=== PATIENT | male | born 1995 | race Hispanic/Latino ===

== ENCOUNTER 2016-08-18 23:28 | Observation (INO) | payer MEDICAID, OTHER ==
[2016-08-18 23:35] VITALS: RESP 16; O2SAT 99
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
[2016-08-19 00:38] LABS: BASO # 0.1 K/uL (0.0-0.2); BASO % 0.5 % (0.0-2.0); EOS % 0.5 % (0.0-4.0); HEMATOCRIT 44.2 % (35.0-51.0); LYMPH # 1.3 K/uL (1.0-4.3); LYMPH % 14.3 % (20.0-40.0); MEAN CELL VOLUME 93.1 fl (80.0-94.0); MEAN CORPUSCULAR HEMOGLOBIN 31.4 pg (27.0-31.0); MEAN CORPUSCULAR HGB CONC 33.7 g/dL (33.0-37.0); MEAN PLATELET VOLUME 8.3 fl (7.2-11.7); MONO # 0.8 K/uL (0.0-0.8); NEUT % 75.7 % (50.0-75.0); NRBC % 0.1 % (0.0-0.0); RED CELL DISTRIBUTION WIDTH 14.6 % (11.5-14.5); WHITE BLOOD COUNT 9.3 K/uL (4.8-10.8)
[2016-08-19 00:47] LABS: BLOOD UREA NITROGEN 9 mg/dl (9-20); CALCIUM 9.4 mg/dL (8.4-10.2); CARBON DIOXIDE 23 mmol/L (22-30); CHLORIDE 105 mmol/L (98-107); GFR AFRICAN-AMERICAN > 60; GLUCOSE,RANDOM 104 mg/dL (75-110); POTASSIUM 3.9 MMOL/L (3.6-5.0); SODIUM 148 mmol/l (132-148)
[2016-08-19 01:03] LABS: ALCOHOL SERUM 372 mg/dl (0-10)
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
--- NOTE | 2016-08-19 06:02 | ED PDOC ---
- Laboratory Results Result Diagrams: 08/19/16 00:35 08/19/16 00:35 - ECG O2 Sat by Pulse Oximetry: 99 Medical Decision Making Medical Decision Making: Patient s/o from Jono Hi PA-C at 0600 pending sobriety. Patient s/o to Dr. Gonzalez at 0700 pending sobriety. Scribe Attestation: Documented by Yanely Mireles acting as a scribe for Lobito Baxter MD. Provider Scribe Attestation: All medical record entries made by the Scribe were at my direction and personally dictated by me. I have reviewed the chart and agree that the record accurately reflects my personal performance of the history, physical exam, medical decision making, and the department course for this patient. I have also personally directed, reviewed, and agree with the discharge instructions and disposition. Disposition - Clinical Impression Clinical Impression: Facial laceration, Head injury, Alcohol intoxication - POA Present On Arrival: None - Disposition Disposition: Transfer of Care Disposition Time: 07:00 Condition: FAIR Patient Signed Over To: Ramírez Gonzalez III Handoff Comments: pending sobriety
--- NOTE | 2016-08-19 07:10 | ED PDOC ---
- Laboratory Results Result Diagrams: 08/19/16 00:35 08/19/16 00:35 - ECG O2 Sat by Pulse Oximetry: 99 Medical Decision Making Medical Decision Making: Time: 0700 Patient signed out by Dr. Baxter pending sobriety Time: 1200 Patient's mother is at bedside at this time requesting to take patient home. Patient given wound care instructions as well as follow information for laceration. Scribe Attestation: Documented by Emilee Quintero acting as a scribe for Ramírez Gonzalez DO MD Scribe Attestation: All medical record entries made by the Scribe were at my direction and personally dictated by me. I have reviewed the chart and agree that the record accurately reflects my personal performance of the history, physical exam, medical decision making, and the department course for this patient. I have also personally directed, reviewed, and agree with the discharge instructions and disposition. Disposition Counseled Patient/Family Regarding: Studies Performed, Diagnosis, Need For Followup - Clinical Impression Clinical Impression: Facial laceration, Head injury, Alcohol intoxication - POA Present On Arrival: None - Disposition Disposition: Routine/Home Disposition Time: 11:00 Condition: IMPROVED
[2016-08-19 18:22] VITALS: BP 122/65; PULSE 79; TEMP 98
== END 2016-08-19 12:01 | disposition home or self-care (01) ==
LOC: H.ER 23:28 → H.EROBSV 08-19
PROVIDERS: ADMIT Emergency Medicine; ATTEND Emergency Medicine
DX: S01.81XA Laceration without foreign body of other part of head, initial encounter (principal); F10.129 Alcohol abuse with intoxication, unspecified

== ENCOUNTER 2016-11-30 01:49 | Observation (INO) | payer SELFPAY ==
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
[2016-11-30 06:21] VITALS: BP 132/86; PULSE 68; RESP 14; TEMP 98.2; O2SAT 99
== END 2016-11-30 06:13 | disposition home or self-care (01) ==
LOC: H.ER 01:49 → H.EROBSV 03:39
PROVIDERS: ADMIT Emergency Medicine; ATTEND Emergency Medicine
DX: F43.20 Adjustment disorder, unspecified (principal); Z79.899 Other long term (current) drug therapy
CPT/HCPCS: 70450; 70486; 96372; 99281; G0378; J1630; J2060